=== PATIENT | female | born 1990 | race African-American/Black ===

== ENCOUNTER 2016-04-04 19:45 | Emergency (ER) | payer SELFPAY ==
--- NOTE | 2016-04-04 20:48 | RAD ---
RIGHT KNEE FOUR VIEWS: History: Right knee injury. FINDINGS: Joint spaces are preserved. There is no acute fracture, dislocation, or fluid distention of the sup rapatellar bursa. IMPRESSION: No acute osseous abnormalities are demonstrated. POS: JEAN-PIERRE
--- NOTE | 2016-04-04 21:07 | ERRECORD ---
[facility] EMERGENCY RECORD HPI KNEE (20:37 DHAM) CHIEF COMPLAINT: Patient presents for evaluation of injury, to the right knee. HISTORIAN: History provided by patient, Pt was jumping on a trampoline and "came down wrong" on her right knee. She can't be more specific but points to the lateral prox tibia as her worst area of pain. She did feel a pop at the time. has walked with a limp since then. MECHANISM OF INJURY: Known mechanism, Mechanism of injury fall. LOCATION: Symptoms are localized, most severe laterally. QUALITY: Pain is dull in nature, described as aching. SEVERITY: Current severity of pain rated as 8/10. TIME COURSE: Sudden onset of symptoms, 1, days ago, There has been no change in the patient's symptoms over time. ASSOCIATED WITH: No associated alcohol use, No associated ankle pain, Associated with decreased range of motion, to the right knee, Associated with decreased use, No associated distal injury, No associated distal neuro complaint, No associated erythema, No associated fever, No associated foot pain, No associated hip pain, No associated inability to ambulate, No associated inability to bear weight, No associated injury, No associated open wounds, Associated with pain on walking, Associated with swelling, for 1 day, No associated tingling. EXACERBATED BY: Patient's condition exacerbated by walking. RELIEVED BY: Patient's condition relieved by remaining still, Patient's condition relieved by rest. ROS (20:41 DHAM) CONSTITUTIONAL: Historian denies fever. MUSCULOSKELETAL: Historian reports arthralgias, denies back pain, denies deformity, reports fall, reports injury, denies joint redness, denies joint stiffness, reports joint swelling. SKIN: Historian denies rash, denies skin changes. NEUROLOGIC: Historian reports gait changes, denies paresthesias, denies sensory changes. HEMO/LYMPHATIC: Historian denies abnormal blood clotting, denies easy bruising. PAST MEDICAL HISTORY (19:55 JDEA) MEDICAL HISTORY: No past medical history. FEMALE SURGICAL HISTORY: Patient has no surgical history. PSYCHIATRIC HISTORY: No previous psychiatric history. SOCIAL HISTORY: Patient denies alcohol use, Patient denies drug use, Patient currently uses tobacco, smokes cigarettes, Lives at home, with family. KNOWN ALLERGIES NKDA &a-1R&a+25V*p+0X*[id number]*c202B*c15G*c2P*p-0X&a-25V&a+1R Name: Janny Dsouza : 1990 F26 MedRec: [id number] AcctNum: [id number] Prepared: MonApr 05, 2016 01:14 by Interface Page 1 of 2 pMD [facility] EMERGENCY RECORD CURRENT MEDICATIONS (19:55 JDEA) None VITAL SIGNS VITAL SIGNS: BP: 127/73, Pulse: 82, Resp: 18, Temp: 98.4 (Oral), Pain: 8, O2 sat: 99 on Room Air, Time: 04/04/2016 19:54. (19:54 JDEA) BP: 120/74, Pulse: 80, Resp: 18, Temp: 98.2, Pain: 6, O2 sat: 98 on RA, Time: 04/04/2016 20:56. (20:56 JDEA) PHYSICAL EXAM (20:41 DHAM) CONSTITUTIONAL: Vital Signs Reviewed, Patient afebrile, Pulse normal, Blood pressure normal, Respiratory rate normal, Patient appears non toxic, Patient appears, in mild pain distress, Patient alert and oriented to person, place and time, Nursing notes reviewed. LOWER EXTREMITY: She may have just a hint of edema at the joint line on exam. I see no fluid in the supralateral pouch. patella appears non-tender and she points 2cm inferior to the right lateral joint line on the anterior prox lateral tibia. tibiofibular joint is not tender. joint line is tender medially and laterally. Stressing the mcl and LCL are not lax or tender. ACL and PCL appear to have good endpoints. negative patellar apprehension sign. lachmans is neg ant drawer is neg. cannot tolerate mcmurrays. distal neurovascular exam is normal. palpation of the distal and mid tibia and fibula are non-tender. rom is limited to 170- 90 degrees. SKIN: Skin exam included findings of skin warm, dry, and normal in color, no rash. RADIOLOGYINTERPRETATION (20:48 DHAM) LOWER EXTREMITIES: Knee films negative, on the right, no fracture, no dislocation, no foreign body, no bony lesion, no degenerative joint disease, no effusion. PROBLEM LIST No recorded problems DIAGNOSIS (20:48 DHAM) FINAL: PRIMARY: RIGHT knee pain. PRESCRIPTION No recorded prescriptions DISPOSITION PATIENT: Disposition Type: Discharge, Disposition: *Discharge Home. (20:48 JOEL) Patient left the department. (20:55 LUISA) Avilez: JOEL=MD Gadiel, Otis MORAN=Navi, RN, Licha &a-1R&a+25V*p+0X*q1570X*c202B*c15G*c2P*p-0X&a-25V&a+1R Name: Janny Dsouza : 1990 F26 MedRec: [id number] AcctNum: [id number] Prepared: [place] Apr 05, 2016 01:14 by Interface Page 2 of 2 pMD MTDD
--- NOTE | 2016-04-04 21:12 | PICIS ---
[facility] EMERGENCY RECORD TRIAGE (19:54 JDEA) TRIAGE NOTES: was playing on a trampoline and hurt her right knee. (19:54 JDEA) PATIENT: NAME: Janny Dsouza, AGE: 26, GENDER: female, : Mon1990, TIME OF GREET: MonApr 04, 2016 19:45, PREFERRED LANGUAGE: Kinyarwanda, ETHNICITY: Not or , ECODE BILLING MAP: [facility], SSN: [id number], KG WEIGHT: 79.38, , , PERSON ID: [id number], PCP: none. (19:54 JDEA) Zip Code: [facility], PHONE: . (20:24) COMPLAINT: RIGHT KNEE SWOLLEN. (19:54 JDEA) ADMISSION: URGENCY: 4 Non Urgent, ADMISSION SOURCE: Home, TRANSPORT: Walk-in, BED: TRIAGE. (19:54 JDEA) IMMUNIZATIONS: Flu vaccine not up to date, Tetanus immunization up to date, Pneumococcal vaccine not up to date. (19:55 JDEA) TRIAGE SCREENING: Patient denies suicidal ideation, Patient denies presence of domestic violence. (19:55 JDEA) LMP: Last menstrual period: 04/03/2016. (19:55 JDEA) PROVIDERS: TRIAGE NURSE: Licha Mcelroy RN. (19:54 JDEA) VITAL SIGNS: BP 127/73, Pulse 82, Resp 18, Temp 98.4, (Oral), Pain 8, O2 Sat 99, on Room Air, Time 04/04/2016 19:54. (19:54 JDEA) KNOWN ALLERGIES NKDA CURRENT MEDICATIONS (19:55 JDEA) None VITAL SIGNS VITAL SIGNS: BP: 127/73, Pulse: 82, Resp: 18, Temp: 98.4 (Oral), Pain: 8, O2 sat: 99 on Room Air, Time: 04/04/2016 19:54. (19:54 JDEA) BP: 120/74, Pulse: 80, Resp: 18, Temp: 98.2, Pain: 6, O2 sat: 98 on RA, Time: 04/04/2016 20:56. (20:56 JDEA) NURSING ASSESSMENT: EXTREMITY LOWER (19:55 JDEA) CONSTITUTIONAL: Complex assessment performed, Patient arrives ambulatory, Gait steady, History obtained from patient, Patient appears comfortable, Patient cooperative, Patient alert, Oriented to person, place and time, Skin warm, Skin dry, Skin normal in color, Mucous membranes pink, Mucous membranes moist, Patient complains of right knee pain, pt in for complaints of right knee pain after playing on trampoline, states she landed wrong and it is painful and swollen, ambulatory to room without difficulty. PAIN: aching pain, right knee, constant, on a scale 0-10 patient rates pain as 8. LEFT LOWER EXTREMITY: Left lower extremity assessment findings include capillary refill less than 2 seconds, Skin color normal, Skin temperature warm, Distal sensation intact, Muscle tone normal, no edema present, dorsalis pedis pulse is +3. &a-1R&a+25V*p+0X*t5260F*c202B*c15G*c2P*p-0X&a-25V&a+1R Name: Janny Dsouza ASH : 1990 F26 MedRec: [id number] AcctNum: [id number] Prepared: MonApr 05, 2016 01:14 by Interface Page 1 of 4 pMD [facility] EMERGENCY RECORD RIGHT LOWER EXTREMITY: Right lower extremity assessment findings include capillary refill less than 2 seconds, Skin color normal, Skin temperature warm, Distal sensation intact, Muscle tone normal, no edema present, dorsalis pedis pulse is +3. NOTES: Patient tolerated procedure well. SAFETY: Side rails up, Cart/Stretcher in lowest position, Family at bedside, Call light within reach, Hospital ID band on. NURSING PROCEDURE: DISCHARGE NOTE (20:56 JDEA) DISCHARGE: Patient discharged to home, ambulating without assistance, family driving, accompanied by other family member, Summary of Care printed/ provided, Patient requested and was provided an electronic copy of Discharge Instructions, Transition record given to patient, Discharge instructions given to patient, Simple or moderate discharge teaching performed, Above person(s) verbalized understanding of discharge instructions and follow-up care, Patient treated and evaluated by physician. BELONGINGS: Belongings and valuables with patient at time of discharge include:, Belongings remain with patient. VITAL SIGNS: BP: 120, / 74, Pulse: 80, Resp: 18, Temp: 98.2, Pain: 6, O2 sat: 98, on: RA, Time: 2055. ORDER DETAILS Order Name: XR Knee Rt 4 View STANDARD, Status: Active, Time: 20:02 04/04/2016, User: JOEL, - Ordered for: MD Ramesh Darren, - Entered by: MD Ramesh Darren - [facility] Apr 04, 2016 20:02, - Quantity: 1. HPI KNEE (20:37 DHAM) CHIEF COMPLAINT: Patient presents for evaluation of injury, to the right knee. HISTORIAN: History provided by patient, Pt was jumping on a trampoline and "came down wrong" on her right knee. She can't be more specific but points to the lateral prox tibia as her worst area of pain. She did feel a pop at the time. has walked with a limp since then. MECHANISM OF INJURY: Known mechanism, Mechanism of injury fall. LOCATION: Symptoms are localized, most severe laterally. QUALITY: Pain is dull in nature, described as aching. SEVERITY: Current severity of pain rated as 8/10. TIME COURSE: Sudden onset of symptoms, 1, days ago, There has been no change in the patient's symptoms over time. ASSOCIATED WITH: No associated alcohol use, No associated ankle pain, Associated with decreased range of motion, to the right knee, Associated with decreased use, No associated distal injury, No associated distal neuro complaint, No associated erythema, No associated fever, No associated foot pain, No associated hip pain, No &a-1R&a+25V*p+0X*s4801T*c202B*c15G*c2P*p-0X&a-25V&a+1R Name: Janny Dsouza ASH : 1990 F26 MedRec: [id number] AcctNum: [id number] Prepared: [place] Apr 05, 2016 01:14 by Interface Page 2 of 4 pMD [facility] EMERGENCY RECORD associated inability to ambulate, No associated inability to bear weight, No associated injury, No associated open wounds, Associated with pain on walking, Associated with swelling, for 1 day, No associated tingling. EXACERBATED BY: Patient's condition exacerbated by walking. RELIEVED BY: Patient's condition relieved by remaining still, Patient's condition relieved by rest. ROS (20:41 DHAM) CONSTITUTIONAL: Historian denies fever. MUSCULOSKELETAL: Historian reports arthralgias, denies back pain, denies deformity, reports fall, reports injury, denies joint redness, denies joint stiffness, reports joint swelling. SKIN: Historian denies rash, denies skin changes. NEUROLOGIC: Historian reports gait changes, denies paresthesias, denies sensory changes. HEMO/LYMPHATIC: Historian denies abnormal blood clotting, denies easy bruising. PAST MEDICAL HISTORY (19:55 JDEA) MEDICAL HISTORY: No past medical history. FEMALE SURGICAL HISTORY: Patient has no surgical history. PSYCHIATRIC HISTORY: No previous psychiatric history. SOCIAL HISTORY: Patient denies alcohol use, Patient denies drug use, Patient currently uses tobacco, smokes cigarettes, Lives at home, with family. PHYSICAL EXAM (20:41 DHAM) CONSTITUTIONAL: Vital Signs Reviewed, Patient afebrile, Pulse normal, Blood pressure normal, Respiratory rate normal, Patient appears non toxic, Patient appears, in mild pain distress, Patient alert and oriented to person, place and time, Nursing notes reviewed. LOWER EXTREMITY: She may have just a hint of edema at the joint line on exam. I see no fluid in the supralateral pouch. patella appears non-tender and she points 2cm inferior to the right lateral joint line on the anterior prox lateral tibia. tibiofibular joint is not tender. joint line is tender medially and laterally. Stressing the mcl and LCL are not lax or tender. ACL and PCL appear to have good endpoints. negative patellar apprehension sign. lachmans is neg ant drawer is neg. cannot tolerate mcmurrays. distal neurovascular exam is normal. palpation of the distal and mid tibia and fibula are non-tender. rom is limited to 170- 90 degrees. SKIN: Skin exam included findings of skin warm, dry, and normal in color, no rash. EVENTS TRANSFER: Triage to Emergency Triage. (MonApr 04, 2016 19:54 JDEA) &a-1R&a+25V*p+0X*p5537Q*c202B*c15G*c2P*p-0X&a-25V&a+1R Name: Janny Dsouza Jenelle ASH : 1990 F26 MedRec: [id number] AcctNum: [id number] Prepared: MonApr 05, 2016 01:14 by Interface Page 3 of 4 pMD [facility] EMERGENCY RECORD Emergency Triage to Main ED -01. (19:55 JDEA) Removed from Emergency Main ED -01. (20:55 JDEA) RADIOLOGYINTERPRETATION (20:48 DHAM) LOWER EXTREMITIES: Knee films negative, on the right, no fracture, no dislocation, no foreign body, no bony lesion, no degenerative joint disease, no effusion. PROBLEM LIST No recorded problems DIAGNOSIS (20:48 DHAM) FINAL: PRIMARY: RIGHT knee pain. DISPOSITION PATIENT: Disposition Type: Discharge, Disposition: *Discharge Home. (20:48 DHAM) Patient left the department. (20:55 JDEA) INSTRUCTION (20:50 DHAM) DISCHARGE: KNEE PAIN, UNCERTAIN CAUSE. SPECIAL: Aleve 2 twice a day Ice on 30 minutes and off 30 minutes Ricki wrap for comfort for several days See your pcp if your pain is still present in several days or sooner for locking or any new symptoms or return here for any concerns. PRESCRIPTION No recorded prescriptions IMAGING (20:57 JDEA) *DISCHARGE INSTRUCTIONS RECEIPT: Image captured from scanner. *SUPPLY CHARGE SHEET: Image captured from scanner. ADMIN (MonApr 05, 2016 01:08 DHAM) DIGITAL SIGNATURE: MD Ramesh Darren. Avilez: JOEL=MD Ramesh Darren JDEA=Navi, RN, Licha &a-1R&a+25V*p+0X*q8779T*c202B*c15G*c2P*p-0X&a-25V&a+1R Name: Janny Dsouza ASH : 1990 F26 MedRec: [id number] AcctNum: [id number] Prepared: MonApr 05, 2016 01:14 by Interface Page 4 of 4 pMD [facility]
== END 2016-04-04 20:56 | disposition home or self-care (01) ==
LOC: MADERS 19:45
DX: M25.561 Pain in right knee (principal); F17.210 Nicotine dependence, cigarettes, uncomplicated
CPT/HCPCS: 99283